=== PATIENT | male | born 1955 | race Caucasian/White ===

== ENCOUNTER 2024-06-12 20:49 | Observation (INO) ==
[2024-06-12] MEDS: 0.9 % SODIUM CHLORIDE 1,000 ML IV ONE (21:45)
[2024-06-12] MEDS: KETOROLAC 15 MG/ML VIAL IV ONE (21:45)
[2024-06-12] MEDS: ONDANSETRON 4 MG/2 ML VIAL IV ONE (21:45)
[2024-06-12 21:52] LABS: Basophils # (Auto) 0.03 K/mcL (0.00-0.30); Basophils % (Auto) 0.2 % (0.0-2.0); Eosinophils # (Auto) 0.14 K/mcL (0.00-0.70); Eosinophils % (Auto) 1.1 % (0.0-7.0); Hematocrit 38.1 % (40.1-51.0); Hemoglobin 13.1 g/dL (13.7-17.5); Lymphocytes # (Auto) 1.16 K/mcL (1.50-4.80); Mean Cell Volume 93.8 fL (80.0-100.0); Mean Corpuscular HGB Conc 34.4 g/dL (31.0-36.0); Mean Platelet Volume 10.6 fL (8.8-12.5); Monocytes # (Auto) 1.53 K/mcL (0.10-0.90); Monocytes % (Auto) 11.9 % (1.0-12.0); Neutrophils % (Auto) 77.6 % (38.0-78.0); Platelet Count 255 K/mcL (140-440); RBC 4.06 M/mcL (4.63-6.08); Red Cell Distribution Width 12.7 % (11.5-14.5); WBC 12.8 K/mcL (4.5-11.0)
[2024-06-12 23:09] LABS: ALT/SGPT < 5 U/L (<40); AST/SGOT 13 U/L (<40); Albumin 3.7 gm/dL (3.2-5.2); Albumin/Globulin Ratio 1.4 (1.0-2.3); Alkaline Phosphatase 84 U/L (39-117); Bilirubin,Total 0.5 mg/dL (0.1-1.0); Blood Urea Nitrogen 18 mg/dL (8-23); Calcium 8.8 mg/dL (8.6-10.4); Carbon Dioxide 20 mmol/L (22-30); Chloride 105 mmol/L (96-108); Globulin 2.7 gm/dL (2.2-3.7); Glomerular Filtration Rate 40; Glucose 142 mg/dL (70-105); Potassium 3.6 mmol/L (3.3-5.1); Sodium 138 mmol/L (133-145)
[2024-06-12 23:36] LABS: Appearance,Urine Clear (Clear); Bacteria,Urine Rare /hpf (0); Bilirubin,Urine Negative (Negative); Color,Urine Yellow; Culture Indicated,Urine Yes; Glucose,Urine (UA) Negative (Negative); Ketones,Urine Negative (Negative); Leukocyte Esterase,Urine Negative /uL (Negative); Nitrate,Urine Negative (Negative); PH,Urine 5.5 (5.0-9.0); Protein,Urine 30 mg/dL (Negative); Urine Blood Moderate ery/mcL (Negative); Urine RBC 5 /hpf (0-3); Urine Squamous Epithelial Cell 0 /hpf (0-4); Urine WBC 2 /hpf (0-4); Urobilinogen,Urine Normal
[2024-06-13] MEDS: 0.9 % SODIUM CHLORIDE 1,000 ML IV SCH (01:32)
[2024-06-13] MEDS: morphine 2 MG/ML VIAL IV PRN (13:05)
[2024-06-13] MEDS: ONDANSETRON 4 MG/2 ML VIAL IV PRN (13:05)
[2024-06-13] MEDS ORDERED: GLYCOPYRROLATE 0.2 MG/ML VIAL IV ONE (15:52)
[2024-06-13] MEDS ORDERED: ONDANSETRON 4 MG/2 ML VIAL ONE (15:52)
[2024-06-13] MEDS ORDERED: fentaNYL 100 MCG/2 ML VIAL ONE ×2 (15:52→16:41)
[2024-06-13] MEDS ORDERED: DEXAMETHASONE 10 MG/ML VIAL ONE (15:52)
[2024-06-13] MEDS ORDERED: PROPOFOL 200 MG/20 ML VIAL IV ONE ×2 (15:52→16:55)
[2024-06-13] MEDS ORDERED: SUGAMMADEX SODIUM 200 MG/2 ML VIAL IV ONE (15:52)
[2024-06-13] MEDS ORDERED: ROCURONIUM 10 MG/ML ML IV ONE (15:53)
[2024-06-13] MEDS: ceFAZolin 2 GM in DEXTROSE 5% IN WATER 50 ML IV SCH (16:32)
[2024-06-13] MEDS ORDERED: NALOXONE HCL 0.4 MG/ML VIAL IV PRN (16:52)
[2024-06-13] MEDS ORDERED: ONDANSETRON 4 MG/2 ML VIAL IV PRN ×2 (16:52→17:27)
[2024-06-13] MEDS ORDERED: fentaNYL 100 MCG/2 ML VIAL IV PRN (16:52)
[2024-06-13] MEDS ORDERED: IPRATROPIUM/ALBUTEROL 3 ML AMPUL.NEB NEB PRN (16:52)
[2024-06-13] MEDS: IOVERSOL 50 ML VIAL IJ ONE (16:53)
[2024-06-13] MEDS: GENTAMICIN SULFATE 250 MG in 0.9 % SODIUM CHLORIDE 250 ML IV SCH (17:05)
[2024-06-13] MEDS ORDERED: PHENYLephrine 1 MG/10 ML SYRINGE (ANEST) ONE (17:10)
[2024-06-13] MEDS: LIDOCAINE 2% URO-JET 10 ML JEL.PF.APP UR ONE (17:22)
[2024-06-13] MEDS ORDERED: HYDROcodone/APAP 5/325MG TABLET PO PRN (17:27)
[2024-06-13] MEDS ORDERED: KETOROLAC 15 MG/ML VIAL IV PRN (17:27)
[2024-06-13] MEDS ORDERED: 0.9 % SODIUM CHLORIDE 10 ML SYRINGE IV SCH (22:00)
== END 2024-06-13 19:54 | disposition home or self-care (01) ==
LOC: ED 20:49 → MEDSUR 20:49
PROVIDERS: ADMIT Urology; ATTEND Urology